=== PATIENT | female | born 1990 | race American Indian/Alaskan Native ===

== ENCOUNTER 2016-10-16 14:15 | Emergency (ER) | payer OTHER ==
--- NOTE | 2016-10-16 14:50 | Emergency Department Report ---
Chief Complaint: Abdominal Pain Stated Complaint: 11 WKS PREG/UPPER ABD PAIN Time Seen by Provider: 10/16/16 14:45 - HPI History of Present Illness: 26-year-old female that is 11 weeks comes in for upper abdominal pain. Patient reports that it started about 11:30 today. She tried to eat something to help the pain the pain is now constant. Alleviating factors none aggravating factors none. Just constant pain. Patient is not under OB care at this time. She is 3 para 0 - Exam Vital Signs: Vital Signs 10/16/16 14:30 Temperature 98.3 F Pulse Rate 92 H Respiratory 16 Rate Blood Pressure 125/80 O2 Sat by Pulse 100 Oximetry Physical Exam: Patient's alert and oriented 3 no acute distress. Cardiovascular S1-S2 regular rate and rhythm respiratory she is clear to auscultation bilateral abdomen soft epigastric tenderness no tenderness of the lower abdominal quadrants MSE screening note: Focused history and physical exam performed. Due to findings the following was ordered: ED Disposition for MSE Condition: Stable Instructions: Abdominal Pain (ED)
[2016-10-16 15:00] LABS: Hematocrit 33.6 % (30.3-42.9); Hemoglobin 11.1 gm/dl (10.1-14.3); Mean Corpuscular HGB Conc 33 % (30-34); Mean Corpuscular Hemoglobin 29 pg (28-32); Mean Corpuscular Volume 89 fl (79-97); Platelet Count 232 K/mm3 (140-440); Red Blood Count 3.77 M/mm3 (3.65-5.03); Red Cell Distribution Width 16.3 % (13.2-15.2)
[2016-10-16 15:22] LABS: Amylase 44 units/L (27-131); Anion Gap 16 mmol/L; Blood Urea Nitrogen 8 mg/dL (7-17); Calcium 8.7 mg/dL (8.4-10.2); Carbon Dioxide 25 mmol/L (22-30); Chloride 103.1 mmol/L (98-107); Glucose 86 mg/dL (65-100); Lipase 17 units/L (13-60); Potassium 3.7 mmol/L (3.6-5.0); Sodium 140 mmol/L (137-145)
[2016-10-16 15:39] LABS: Alanine Aminotransferase 6 units/L (7-56); Albumin 3.6 g/dL (3.9-5); Albumin/Globulin Ratio 1.1 %; Alkaline Phosphatase 58 units/L (35-129); Bilirubin,Total < 0.2 mg/dL (0.1-1.2); Total Protein 6.8 g/dL (6.3-8.2)
[2016-10-16 15:42] LABS: Bilirubin,Direct < 0.2 mg/dL (0-0.2)
--- NOTE | 2016-10-16 17:04 | Ultrasound Report ---
FINAL REPORT EXAM: US ABDOMEN LIMITED HISTORY: epigastric pain TECHNIQUE: Ultrasound abdomen PRIORS: None. FINDINGS: Within the right lobe of the liver there is 1.9 x 1.6 x 1.8 centimeter well-defined hyperechoic mass. Gallbladder is contracted. Gallbladder wall thickness 3.1 centimeters. No pericholecystic fluid seen. No evidence for cholelithiasis. Common bile duct is 3.7 millimeters Right kidney is 10.8 x 4.6 x 5.8 centimeters. No evidence for hydronephrosis IMPRESSION: Hyperechoic focus within the right lobe of the liver most consistent with hemangioma Contracted gallbladder. No evidence for cholelithiasis or acute cholecystitis
--- NOTE | 2016-10-16 17:09 | Ultrasound Report ---
FINAL REPORT EXAM: US OB < = 14 WEEKS FETUS HISTORY: abd pain TECHNIQUE: Ultrasound obstetrical transabdominal PRIORS: None. FINDINGS: There is gestational sac within the uterus. There is pole identified measuring 5.1 centimeters in crown-rump length. Biparietal diameter 1.7 centimeters. Femur length is 0.7 centimeters this corresponds to estimated gestational age 12 weeks 1 days with estimated date of delivery April 29, 2017. cardiac activity is present with heart rate of 153 beats per minute there is a mixed echogenicity focus within anterior body of the uterus 3.3 x 3.4 x 3.8 centimeters likely reflecting a intramural or submucosal fibroid. Right ovary is 2.8 x 1.8 x 1.5 centimeters Left ovary is 2.9 x 1.2 x 2.5 centimeters. Ovaries are normal in echogenicity. IMPRESSION: Single live intrauterine gestation estimated at 12 weeks 1 day 3.8 centimeter uterine fibroid noted
[2016-10-16 21:32] LABS: Bacteria,Urine 1+ /HPF (Negative); Bilirubin,Urine NEG (Negative); Blood,Urine NEG (Negative); Ketones,Urine NEG (Negative); Leukocyte Esterase,Urine MOD (Negative); Mucus,Urine 2+ /HPF; Nitrite,Urine NEG (Negative); Protein,Urine <15 mg/dL mg/dL (Negative); Urobilinogen,Urine < 2.0 mg/dL (<2.0)
--- NOTE | 2016-10-16 22:59 | Emergency Department Report ---
ED Abdominal Pain HPI - General Chief Complaint: Abdominal Pain Stated Complaint: 11 WKS PREG/UPPER ABD PAIN Time Seen by Provider: 10/16/16 14:45 Source: patient Mode of arrival: Ambulatory Limitations: No Limitations - History of Present Illness Initial Comments: 26-year-old female presents to the emergency department complaining of abdominal pain. Patient reports the onset of upper abdominal pain at approximately 11:30 AM. Pain was described as pressure. Initially the pain was intermittent, but became constant approximately one hour after onset. Patient states the pain has now migrated to her lower abdomen. She denies associated nausea or vomiting. Patient states she is approximately 11 weeks . She denies vaginal bleeding or vaginal discharge. There are no other complaints. MD Complaint: abdominal pain -: Sudden, This morning Time: 11:30 Location: epigastric Radiation: none Migration to: suprapubic Severity: moderate Severity scale (0 -10): 5 Quality: other (pressure) Consistency: constant Improves With: nothing Worsens With: nothing Associated Symptoms: denies other symptoms - Related Data Previous Rx's Medication Instructions Recorded Last Taken Type Multivitamin-Min/Iron/FA/Vit K 1 each PO DAILY #30 capsule 05/03/16 10/16/16 Rx [Multi For Her Softgel] Nitrofurantoin Magoffin/M-Cryst 100 mg PO Q12HR #14 capsule 10/16/16 Unknown Rx [Macrobid CAP] Allergies Allergy/AdvReac Type Severity Reaction Status Date / Time No Known Allergies Allergy Verified 09/06/16 09:30 ED Review of Systems ROS: Stated complaint: 11 WKS PREG/UPPER ABD PAIN Other details as noted in HPI Comment: All other systems reviewed and negative Gastrointestinal: abdominal pain ED Past Medical Hx - Past Medical History Previous Medical History?: No - Surgical History Past Surgical History?: Yes Additional Surgical History: wisdom teeth extractions, abortions x 2 - Family History Family history: no significant - Social History Smoking Status: Never Smoker Substance Use Type: None - Medications Home Medications: Home Medications Medication Instructions Recorded Confirmed Last Taken Type Multivitamin-Min/Iron/FA/Vit K 1 each PO DAILY #30 capsule 05/03/16 10/16/16 Rx [Multi For Her Softgel] Nitrofurantoin Magoffin/M-Cryst 100 mg PO Q12HR #14 capsule 10/16/16 Unknown Rx [Macrobid CAP] ED Physical Exam - General Limitations: No Limitations General appearance: alert, in no apparent distress - Head Head exam: Present: atraumatic, normocephalic - Eye Eye exam: Present: normal appearance, PERRL, EOMI - ENT ENT exam: Present: normal exam, normal orophraynx, mucous membranes moist - Neck Neck exam: Present: normal inspection, full ROM. Absent: tenderness - Respiratory Respiratory exam: Present: normal lung sounds bilaterally. Absent: respiratory distress - Cardiovascular Cardiovascular Exam: Present: regular rate, normal rhythm, normal heart sounds - GI/Abdominal GI/Abdominal exam: Present: soft, tenderness (mild suprapubic tenderness to palpation), normal bowel sounds. Absent: distended, guarding, rebound - Extremities Exam Extremities exam: Present: normal inspection, full ROM. Absent: tenderness - Back Exam Back exam: Present: normal inspection, full ROM. Absent: tenderness - Neurological Exam Neurological exam: Present: alert, oriented X3. Absent: motor sensory deficit - Skin Skin exam: Present: warm, dry, intact ED Course Vital Signs 10/16/16 10/16/16 10/16/16 14:30 20:47 20:52 Temperature 98.3 F 98.2 F Pulse Rate 92 H 80 Respiratory 16 18 20 Rate Blood Pressure 125/80 Blood Pressure 109/62 [Right] O2 Sat by Pulse 100 100 98 Oximetry 10/16/16 22:34 Temperature 98.4 F Pulse Rate 81 Respiratory 20 Rate Blood Pressure Blood Pressure 97/64 [Right] O2 Sat by Pulse 100 Oximetry ED Medical Decision Making - Lab Data Result diagrams: 10/16/16 14:51 10/16/16 14:51 - Radiology Data Radiology results: report reviewed Ultrasound of the abdomen reveals no acute intra-abdominal abnormality. ultrasound reveals a single live intrauterine with estimated gestational age of 12 weeks, 1 day. - Medical Decision Making Lab and imaging results reviewed and discussed with the patient. Patient will be discharged home at this time to follow up with her MEDICARE COORDINATOR. - Differential Diagnosis GERD, UTI, abdominal pain in Critical care attestation.: If time is entered above; I have spent that time in minutes in the direct care of this critically ill patient, excluding procedure time. ED Disposition Clinical Impression: Urinary tract infection affecting Disposition: DISCHARGED TO HOME OR SELFCARE Is pt being admited?: No Condition: Stable Instructions: Urinary Tract Infection in Women (ED) Prescriptions: Nitrofurantoin Magoffin/M-Cryst [Macrobid CAP] 100 mg PO Q12HR #14 capsule Referrals: PRIMARY CARE, [Primary Care Provider] - 3-5 Days Time of Disposition: 23:04
[2016-10-16 23:45] VITALS: BP 106/61
== END 2016-10-16 23:45 | disposition home or self-care (01) ==
LOC: ED 14:15
DX: O23.41 Unspecified infection of urinary tract in pregnancy, first trimester (principal); N39.0 Urinary tract infection, site not specified; Z3A.11 11 weeks gestation of pregnancy
CPT/HCPCS: 36415; 76705; 76801; 80048; 80074; 81001; 82150; 83690; 84703; 85027

== ENCOUNTER 2019-02-24 23:18 | Emergency (ER) | payer MEDICAID ==
[2019-02-24 23:24] VITALS: BP 166/104
[2019-02-25] MEDS ORDERED: TYLENOL PO ONE (00:37)
[2019-02-25] MEDS ORDERED: TYLENOL ONE (00:38)
[2019-02-25] MEDS ORDERED: IBUPROFEN PO STA (02:10)
--- NOTE | 2019-02-25 02:15 | Emergency Department Report ---
ED ENT HPI - General Chief complaint: Earache Stated complaint: LT EAR PAIN Time Seen by Provider: 02/25/19 02:09 Source: patient Mode of arrival: Ambulatory Limitations: No Limitations - History of Present Illness MD complaint: ear pain -: Gradual, days(s) Location: L ear Severity: mild Quality: aching Consistency: constant Improves with: none Worsens with: none Context- Dental: history of dental caries Associated Symptoms: hearing loss. denies: gum swelling, toothache, pain with swallowing, sore throat, tinnitus, rhinorrhea - Related Data Home Medications Medication Instructions Recorded Confirmed Last Taken Ferrous Sulfate [Feosol] 325 mg PO QDAY 05/05/17 05/05/17 04/29/17 12:30 Previous Rx's Medication Instructions Recorded Last Taken Type Multivit-Min/Iron/Folic Acid/K 1 each PO DAILY #30 capsule 05/03/16 04/08/17 08:00 Rx [Multi For Her Softgel] Nitrofurantoin Lares/M-Cryst 100 mg PO Q12HR #14 capsule 10/16/16 Unknown Rx [Macrobid CAP] Acetaminophen/Codeine [Tylenol 1 tab PO Q6H PRN #14 tab 05/08/17 Unknown Rx /Codeine # 3 tab] Amoxicillin [Amoxicillin TAB] 875 mg PO BID #20 tablet 02/25/19 Unknown Rx predniSONE [Deltasone] 50 mg PO QDAY #5 tab 02/25/19 Unknown Rx Allergies Allergy/AdvReac Type Severity Reaction Status Date / Time No Known Allergies Allergy Verified 09/06/16 09:30 ED Dental HPI - General Chief complaint: Earache Stated complaint: LT EAR PAIN Time Seen by Provider: 02/25/19 02:09 Source: patient Mode of arrival: Ambulatory Limitations: No Limitations - Related Data Home Medications Medication Instructions Recorded Confirmed Last Taken Ferrous Sulfate [Feosol] 325 mg PO QDAY 05/05/17 05/05/17 04/29/17 12:30 Previous Rx's Medication Instructions Recorded Last Taken Type Multivit-Min/Iron/Folic Acid/K 1 each PO DAILY #30 capsule 05/03/16 04/08/17 08:00 Rx [Multi For Her Softgel] Nitrofurantoin Lares/M-Cryst 100 mg PO Q12HR #14 capsule 10/16/16 Unknown Rx [Macrobid CAP] Acetaminophen/Codeine [Tylenol 1 tab PO Q6H PRN #14 tab 05/08/17 Unknown Rx /Codeine # 3 tab] Amoxicillin [Amoxicillin TAB] 875 mg PO BID #20 tablet 02/25/19 Unknown Rx predniSONE [Deltasone] 50 mg PO QDAY #5 tab 02/25/19 Unknown Rx Allergies Allergy/AdvReac Type Severity Reaction Status Date / Time No Known Allergies Allergy Verified 09/06/16 09:30 ED Review of Systems ROS: Stated complaint: LT EAR PAIN Other details as noted in HPI Constitutional: denies: chills, fever Eyes: denies: eye pain, eye discharge, vision change ENT: ear pain. denies: throat pain Respiratory: denies: cough, shortness of breath, wheezing Cardiovascular: denies: chest pain, palpitations Endocrine: no symptoms reported Gastrointestinal: denies: abdominal pain, nausea, diarrhea Genitourinary: denies: urgency, dysuria, discharge Musculoskeletal: denies: back pain, joint swelling, arthralgia Skin: denies: rash, lesions Neurological: denies: headache, weakness, paresthesias Psychiatric: denies: anxiety, depression Hematological/Lymphatic: denies: easy bleeding, easy bruising ED Past Medical Hx - Past Medical History Previous Medical History?: No Hx Hypertension: No Hx Congestive Heart Failure: No Hx Diabetes: No Hx Deep Vein Thrombosis: No Hx Renal Disease: No Hx Sickle Cell Disease: No Hx Seizures: No Hx Asthma: No Hx COPD: No Hx HIV: No - Surgical History Past Surgical History?: Yes Additional Surgical History: wisdom teeth extractions, abortions x 2 - Social History Smoking Status: Never Smoker - Medications Home Medications: Home Medications Medication Instructions Recorded Confirmed Last Taken Type Multivit-Min/Iron/Folic Acid/K 1 each PO DAILY #30 capsule 05/03/16 05/05/17 04/08/17 08:00 Rx [Multi For Her Softgel] Nitrofurantoin Lares/M-Cryst 100 mg PO Q12HR #14 capsule 10/16/16 05/05/17 Unknown Rx [Macrobid CAP] Ferrous Sulfate [Feosol] 325 mg PO QDAY 05/05/17 05/05/17 04/29/17 12:30 History Acetaminophen/Codeine [Tylenol 1 tab PO Q6H PRN #14 tab 05/08/17 Unknown Rx /Codeine # 3 tab] Amoxicillin [Amoxicillin TAB] 875 mg PO BID #20 tablet 02/25/19 Unknown Rx predniSONE [Deltasone] 50 mg PO QDAY #5 tab 02/25/19 Unknown Rx ED Physical Exam - General Limitations: No Limitations General appearance: alert, in no apparent distress - Head Head exam: Present: atraumatic, normocephalic - Eye Eye exam: Present: normal appearance - ENT ENT exam: Present: mucous membranes moist, other (swelling mostly to the left tympanic membranes. Light reflex is noted. Nose: Fluid noted. Abdomen tympanic membrane is well with an injection to the tympanic membrane. There) - Neck Neck exam: Present: normal inspection, full ROM - Respiratory Respiratory exam: Present: normal lung sounds bilaterally. Absent: respiratory distress, wheezes, rales, rhonchi - Cardiovascular Cardiovascular Exam: Present: regular rate, normal rhythm. Absent: systolic murmur, diastolic murmur, rubs, gallop - GI/Abdominal GI/Abdominal exam: Present: soft, normal bowel sounds - Extremities Exam Extremities exam: Present: normal inspection - Back Exam Back exam: Present: normal inspection - Neurological Exam Neurological exam: Present: alert, oriented X3 - Psychiatric Psychiatric exam: Present: normal affect, normal mood - Skin Skin exam: Present: warm, dry, intact, normal color. Absent: rash ED Course Vital Signs 02/24/19 02/25/19 02/25/19 23:23 00:30 00:38 Temperature 99.0 F 99.0 F Pulse Rate 97 H 81 Respiratory 18 18 20 Rate Blood Pressure 166/104 166/104 O2 Sat by Pulse 98 98 Oximetry Critical care attestation.: If time is entered above; I have spent that time in minutes in the direct care of this critically ill patient, excluding procedure time. ED Disposition Clinical Impression: Otitis media Disposition: DC-01 TO HOME OR SELFCARE Is pt being admited?: No Does the pt Need Aspirin: No Condition: Stable Instructions: Otitis Media (ED) Prescriptions: Amoxicillin [Amoxicillin TAB] 875 mg PO BID #20 tablet predniSONE [Deltasone] 50 mg PO QDAY #5 tab Referrals: NAZARIO HOPPER MD [Primary Care Provider] - 3-5 Days
== END 2019-02-25 03:47 | disposition home or self-care (01) ==
LOC: ED 23:18
DX: H66.92 Otitis media, unspecified, left ear (principal)
CPT/HCPCS: 99282

== ENCOUNTER 2019-09-20 09:18 | Outpatient (CLI) | payer MEDICAID ==
[2019-09-20] MEDS ORDERED: LACTATED RINGERS 500 ML IV ONE (10:01)
[2019-09-20 10:33] LABS: Bilirubin,Urine NEG (Negative); Blood,Urine NEG (Negative); Color,Urine Yellow (Yellow); Mucus,Urine FEW /HPF; Protein,Urine <15 mg/dL mg/dL (Negative); Urobilinogen,Urine < 2.0 mg/dL (<2.0)
[2019-09-20 10:50] LABS: Basophils % (Auto) 0.1 % (0.0-1.8); Eosinophils # (Auto) 0.2 K/mm3 (0.0-0.4); Eosinophils % (Auto) 1.6 % (0.0-4.3); Hematocrit 31.6 % (30.3-42.9); Hemoglobin 10.4 gm/dl (10.1-14.3); Lymphocytes # (Auto) 1.7 K/mm3 (1.2-5.4); Lymphocytes % (Auto) 14.6 % (13.4-35.0); Mean Corpuscular HGB Conc 33 % (30-34); Mean Corpuscular Volume 93 fl (79-97); Monocytes # (Auto) 0.8 K/mm3 (0.0-0.8); Monocytes % (Auto) 6.7 % (0.0-7.3); Platelet Count 235 K/mm3 (140-440); Red Blood Count 3.42 M/mm3 (3.65-5.03); Red Cell Distribution Width 14.6 % (13.2-15.2)
[2019-09-20 11:04] LABS: Amphetamine Screen,Urine PRESUMPTIVE NEGATIVE; Benzodiazepines Screen,Urine PRESUMPTIVE NEGATIVE; Cannabinoid Screen,Urine PRESUMPTIVE NEGATIVE; Cocaine Screen,Urine PRESUMPTIVE NEGATIVE; Methadone Screen,Urine PRESUMPTIVE NEGATIVE; Opiate Screen,Urine PRESUMPTIVE NEGATIVE
[2019-09-20 11:13] LABS: Alanine Aminotransferase 6 units/L (7-56); Albumin 3.3 g/dL (3.9-5); BUN/Creatinine Ratio 12; Blood Urea Nitrogen 6 mg/dL (7-17); Calcium 8.6 mg/dL (8.4-10.2); Hemolysis Index 11
[2019-09-20 11:54] VITALS: BP 123/58
--- NOTE | 2019-09-20 12:45 | Ultrasound Report ---
Limited OB Ultrasound BPP HISTORY: no pnc. TECHNIQUE: Grayscale and color Doppler imaging performed. COMPARISON: No recent ultrasound is available for comparison. FINDINGS: There is a single viable intrauterine gestation which is variable in presentation. Heart ra te is 143 bpm. There is a single vertical fluid pocket greater than 2 cm and FEDERICO is subjectively norm al. Overall EGA is 21 weeks and 3 days with estimated delivery date of 01/28/2020. Estimated edson ght is 429 g. Placenta is seen posteriorly with no evidence of placenta previa. On BPP, the fetus received a score of 2 out of 2 for breathing movement, movement, posture/tone, and FEDERICO. Total score was 8 out of 8. IMPRESSION: 1. Single viable intrauterine gestation as outlined above with no evidence of abruption. 2. Normal BPP. Signer Name: Erick Hall MD Signed: 09/20/2019 12:40 PM Workstation Name: [id number]
== END 2019-09-20 13:00 | disposition home or self-care (01) ==
LOC: TRG 09:18
PROVIDERS: ATTEND Obstetrics & Gynecology
DX: O47.02 False labor before 37 completed weeks of gestation, second trimester (principal); Z3A.21 21 weeks gestation of pregnancy
CPT/HCPCS: 36415; 59025; 76815; 76816; 76819; 80053; 80307; 81001; 85025

== ENCOUNTER → 2019-09-20 | Emergency (ER) | payer MEDICAID | LOC: ED 09:05 | DX: R10.9 Unspecified abdominal pain (principal); Z53.21 Procedure and treatment not carried out due to patient leaving prior to being seen by health care provider ==

== ENCOUNTER 2019-09-25 13:22 | Emergency (ER) | payer MEDICAID ==
[2019-09-25 14:27] VITALS: BP 133/79
--- NOTE | 2019-09-25 16:00 | Emergency Department Report ---
Chief Complaint: Upper Respiratory Infection Stated Complaint: THROAT PAIN/COUGH Time Seen by Provider: 09/25/19 14:25 - HPI History of Present Illness: Mary Jo is a 29 yo female who is currently 21 weeks who presents with cough nasal congestion. She has home amoxicillin that she plans to take for bronchitis. MSE performed. No indication of life or limb threatening medical condition which requires treatment or evaluation. - Exam Vital Signs: Vital Signs 09/25/19 14:25 Temperature 98.7 F Pulse Rate 122 H Respiratory 22 Rate Blood Pressure 133/79 [Right] O2 Sat by Pulse 97 Oximetry MSE screening note: Focused history and physical exam performed. Due to findings the following was ordered: ED Disposition for MSE Clinical Impression: URI (upper respiratory infection), Patient currently Disposition: MED SCREENING EXAM-LEFT Is pt being admited?: No Does the pt Need Aspirin: No Condition: Stable Additional Instructions: Please return to the ER if your symptoms do not improve or become worse.
== END 2019-09-25 16:02 | disposition left against medical advice (07) ==
LOC: ED 13:22
DX: O99.512 Diseases of the respiratory system complicating pregnancy, second trimester (principal); J06.9 Acute upper respiratory infection, unspecified; Z3A.21 21 weeks gestation of pregnancy
CPT/HCPCS: 99281

== ENCOUNTER 2019-10-19 16:47 | Outpatient (CLI) | payer OTHER ==
[2019-10-19] MEDS ORDERED: LACTATED RINGERS 500 ML IV ONE (17:45)
[2019-10-19 18:03] VITALS: BP 122/73
== END 2019-10-19 19:35 | disposition home or self-care (01) ==
LOC: TRG 16:47
PROVIDERS: ATTEND Obstetrics & Gynecology
DX: O47.03 False labor before 37 completed weeks of gestation, third trimester (principal); Z3A.24 24 weeks gestation of pregnancy
CPT/HCPCS: 59025

== ENCOUNTER 2019-12-04 18:58 | Outpatient (CLI) | payer MEDICAID ==
[2019-12-04 21:30] LABS: Bacteria,Urine 2+ /HPF (Negative); Bilirubin,Urine NEG (Negative); Blood,Urine MOD (Negative); Color,Urine Yellow (Yellow); Mucus,Urine FEW /HPF; Urobilinogen,Urine < 2.0 mg/dL (<2.0)
[2019-12-04 21:31] LABS: WBC,Urine > 128.0 /HPF (0.0-6.0)
[2019-12-05] MEDS ORDERED: FLUCONAZOLE 100 MG TAB PO ONE (21:12)
== END 2019-12-04 23:25 | disposition home or self-care (01) ==
LOC: TRG 18:58
PROVIDERS: ATTEND Obstetrics & Gynecology
DX: O26.893 Other specified pregnancy related conditions, third trimester (principal); R10.2 Pelvic and perineal pain; Z3A.33 33 weeks gestation of pregnancy
CPT/HCPCS: 81001; 87086

== ENCOUNTER 2020-01-23 08:08 | Inpatient (IN) | payer MEDICAID ==
--- NOTE | 2020-01-23 10:52 | History and Physical Report ---
History of Present Illness Date of examination: 01/23/20 Date of admission: 01/23/2020 Chief complaint: Intense Labor Pains History of present illness: Late entry to care at 28 weeks, 3rd trimester complicated by a UTI (treated with Amoxicillin), +Trichomonas (treated with Negative RITA), Anemia (treated with PO FeSO4), and Vitamin D Insufficiency (treated with Vit. D). Past History Past Medical History: no pertinent history Past Surgical History: PAPER FOLDER/uterine surgery (EAB x 2), other (oral Sx) PAPER FOLDER History: trichomonas Family/Genetic History: cancer (Mother: Ovarian CA; Father: Throat Ca) Social history: no significant social history, single - Obstetrical History Expected Date of Delivery: 01/28/20 Actual Gestation: 39 Week(s) 2 Day(s) : 5 Para: 1 Hx # Term Pregnancies: 1 Spontaneous Abortions: 1 Induced : 2 Number of Living Children: 1 #1 Infant Gender: Female year: 18 Birthweight: 2.92 kg Method of Delivery: Vaginal Gestational age at delivery: 41 Complications: none Medications and Allergies Allergies Allergy/AdvReac Type Severity Reaction Status Date / Time No Known Allergies Allergy Verified 09/25/19 14:27 Home Medications Medication Instructions Recorded Confirmed Last Taken Type No Known Home Medications [No 09/20/19 09/20/19 Unknown History Reported Home Medications] Review of Systems All systems: negative - Vital Signs Vital signs: Vital Signs Pulse BP Pulse Ox 71 120/70 93 01/23/20 08:33 01/23/20 08:33 01/23/20 08:33 Temp Pulse Resp BP Pulse Ox 99.2 F 53 L 20 123/75 90 01/23/20 08:40 01/23/20 10:36 01/23/20 08:40 01/23/20 08:42 01/23/20 10:36 - Physical Exam Breasts: Positive: normal Cardiovascular: Regular rate Lungs: Positive: Clear to auscultation, Normal air movement Abdomen: Positive: normal appearance, soft, normal bowel sounds Genitourinary (Female): Positive: normal external genitalia, normal perenium Vagina: Positive: normal moisture Uterus: Positive: enlarged Anus/Rectum: Positive: normal perianal skin Extremities: Positive: normal - Obstetrical FHR: category 1 Uterine Contraction Monitor Mode: External Cervical Dilatation: 3 Cervical Effacement Percentage: 60 station: -2 Uterine Contraction Frequency (min): 2 Uterine Contraction Pattern: Regular Uterine Tone Measurement Phase: Resting Uterine Contraction Intensity: Strong/Firm Results All other labs normal. Assessment and Plan A: IUP @ 39 2/7 Weeks Category I Tracing Early Labor GBS Positive P: Admit to L&D per Routine Orders GBS Prophylaxis
[2020-01-23] MEDS ORDERED: OXYTOCIN 20 UNIT/1000ML DRIP 20 UNITS/1,000 ML BAG IV SCH ×2 (11:00→23:00)
[2020-01-23] MEDS ORDERED: AMPICILLIN/NS 2 GM/100 ML 2 GM/100 ML BAG IV SCH (11:00)
[2020-01-23] MEDS ORDERED: OXYTOCIN DRIP 30 UNITS/500 ML BAG IV SCH (11:00)
[2020-01-23] MEDS ORDERED: MINERAL OIL 30 ML ORAL LIQD PO PRN (11:00)
[2020-01-23] MEDS ORDERED: NALOXONE 0.4 MG/1 ML INJ IV PRN (11:00)
[2020-01-23] MEDS ORDERED: TERBUTALINE 1 MG/1 ML INJ SUB-Q PRN (11:00)
[2020-01-23] MEDS ORDERED: LIDOCAINE (2%) 20 MG/1 ML VIAL 20 ML MDV INFILTRATI NR (11:00)
[2020-01-23] MEDS ORDERED: ONDANSETRON 4 MG/2 ML INJ IV PRN (11:00)
[2020-01-23] MEDS ORDERED: BUTORPHANOL 2 MG/1 ML INJ IV PRN (11:00)
[2020-01-23] MEDS ORDERED: ePHEDrine SULFATE 50 MG/1 ML INJ IV PRN (11:00)
[2020-01-23] MEDS ORDERED: TERBUTALINE 1 MG/1 ML INJ IVP PRN (11:00)
[2020-01-23 11:16] LABS: Hematocrit 39.8 % (30.3-42.9); Hemoglobin 13.1 gm/dl (10.1-14.3); Mean Corpuscular HGB Conc 33 % (30-34); Mean Corpuscular Volume 93 fl (79-97); Platelet Count 242 K/mm3 (140-440); Red Blood Count 4.28 M/mm3 (3.65-5.03); Red Cell Distribution Width 17.2 % (13.2-15.2)
[2020-01-23] MEDS: LACTATED RINGERS 1,000 ML IV SCH ×5 (11:30→19:54)
[2020-01-23] MEDS ORDERED: NALOXONE 2 MG/2 ML INJ IV PRN (13:49)
[2020-01-23] MEDS: fentaNYL-BUPIV 2 MCG/ML-0.125% 200 MCG/100 ML BAG EPIDURAL SCH ×3 (14:25→21:14)
[2020-01-23] MEDS ORDERED: DEXMEDETOMIDINE 200 MCG/2 ML VIAL IV ONE ×2 (14:56→23:58)
[2020-01-23] MEDS ORDERED: BUPIVACAINE/PF (0.25%) 2.5 MG/ML 10 ML VIAL INFILTRATI ONE (14:56)
[2020-01-23] MEDS: ePHEDrine SULFATE 50 MG/1 ML INJ IV PRN ×2 (15:40→16:49)
[2020-01-23] MEDS: AMPICILLIN/NS 1 GM/50 ML 1 GM/50 ML BAG IV SCH ×2 (18:06→19:54)
[2020-01-23] MEDS ORDERED: METOCLOPRAMIDE 10 MG/2 ML INJ ONE (22:49)
[2020-01-23] MEDS ORDERED: BICITRA ORAL LIQD 30ML ONE (22:49)
[2020-01-23] MEDS ORDERED: FAMOTIDINE 20 MG/2 ML INJ IV ONE ×2 (22:49→22:58)
[2020-01-23] MEDS ORDERED: ceFAZolin/Water 2 GM/20 ML 2 GM/20 ML SYRINGE IV ONE (22:50)
[2020-01-23] MEDS ORDERED: METOCLOPRAMIDE 10 MG/2 ML INJ IV ONE (22:58)
[2020-01-23] MEDS ORDERED: BICITRA ORAL LIQD 30ML PO ONE (22:58)
--- NOTE | 2020-01-23 22:58 | Event Note ---
Date: 01/23/20 PT check again now and is still 5 cm. PT with minimal cervical change in several hours. Just low dose pitocin earlier today resulted in episodes of prolonged decels, therefore pit turned off. Recently, pt had a 2-3 min decel even without pitocin and without regular contractions. With her poor cervical progression and repeated episodes of prolonged decels, case d/w pt and options d/w. Risks/benefits of expectant management vs LTCS d/w pt and she opts to proceed with LTCS. Patient fully consented for the surgery. Risks, benefits. and alternatives were all discussed with the patient including risk of bleeding, infection, and potential for injury. Patient understands and accepts these risks. Patient agrees to proceed with surgery.
[2020-01-23] MEDS ORDERED: LIDOCAINE MPF (2%) 20 MG/1 ML VIAL 5 ML ONE ×2 (23:00→23:30)
[2020-01-23] MEDS ORDERED: ceFAZolin/Water 2 GM/20 ML 2 GM/20 ML SYRINGE IV NR (23:00)
[2020-01-23] MEDS ORDERED: LACTATED RINGERS 1,000 ML IV SCH (23:00)
--- NOTE | 2020-01-23 23:13 | Procedure Note ---
OB Delivery Note - Delivery Date of Delivery: 01/23/20 Surgeon: BENNY MERA Estimated blood loss: 1000cc - Section Preop diagnosis: arrest of dilation, nonreassuring FHR tracing Postop diagnosis: same section procedure: section, primary low transverse Disposition: PACU Complications: none Narrative: Indication: 29-year-old -0-3-1 is for primary low transverse for poor cervical dilation and nonreassuring heart tracing. Findings: Normal uterus, tubes and ovaries. Meconium fluid. Tight nuchal cord x 2. Procedure: Patient taken to the operating room and prepped and draped in the usual fashion. Pfannenstiel skin incision was made and carried down to the underlying fascia. Fascia was incised and the incision was extended bilaterally. Rectus fascia dissected off the rectus muscle both superiorly and inferiorly. Peritoneum identified tented up and entered. Peritoneal incision extended superiorly and inferiorly with good visualization of the bladder. Bladder blade was placed. Uterine incision was made and the incision was extended bilaterally. The baby was delivered from in the typical vertex fashion. Baby bulb suctioned at the incision site and again after delivery. Cord was clamped and cut and handed off to waiting team. The placenta was delivered spontaneously. The uterus was exteriorized and cleared of all clots and debris. Uterine incision closed with 0 Vicryl in a running locked fashion followed by a second imbricating layer of 0 Vicryl. Bleeding from a uterine vessel on the left took a few additional stitches and then good hemostasis was noted. Her urine was clear. Uterus tubes and ovaries return to the abdominal cavity. Gutters were cleared of all clots and debris and the pelvis was well irrigated. Good hemostasis noted. Interceed placed over the uterine incision and over the lower uterine segment in the midline. Attention was turned to the rectus fascia which was reapproximated with 0 Vicryl in a running fashion. Subcutaneous tissues was irrigated and reapproximated with 2-0 Vicryl in a running fashion. Skin was closed with 4-0 Vicryl in a subcuticular fashion followed by Dermabond. The procedure was concluded at this point and the patient tolerated the procedure well. All instrument and lap counts were correct. - Infant A at 1 minute: 8 at 5 minutes: 8 Gender: Male
[2020-01-23] MEDS ORDERED: SODIUM CHLORIDE 0.9% 1000 ML IV SOLN IV ONE (23:17)
[2020-01-23] MEDS ORDERED: ceFAZolin/STERILE WATER 2 GM/20 ML SYRINGE IV ONE (23:17)
[2020-01-23] MEDS ORDERED: KETOROLAC 30 MG/1 ML INJ ONE (23:33)
[2020-01-23] MEDS ORDERED: ONDANSETRON 4 MG/2 ML INJ ONE (23:33)
[2020-01-24] MEDS ORDERED: LIDOCAINE MPF (2%) 20 MG/1 ML VIAL 5 ML ONE (00:13)
[2020-01-24] MEDS ORDERED: METHYLERGONOVINE MALEATE 0.2 MG/ML VIAL IM ONE ×2 (00:19→02:45)
[2020-01-24] MEDS ORDERED: OXYTOCIN 10 UNIT/1 ML INJ ONE (00:34)
[2020-01-24] MEDS ORDERED: WITCH HAZEL/ GLYCERIN PAD TP PRN (00:50)
[2020-01-24] MEDS ORDERED: NALOXONE 0.4 MG/1 ML INJ IV PRN (00:50)
[2020-01-24] MEDS ORDERED: LANOLIN/ZINC/DIMETHICONE (LANSINOH) 7 GM TP PRN (00:50)
[2020-01-24] MEDS ORDERED: SIMETHICONE 80 MG CHEW TAB PO PRN (00:52)
[2020-01-24] MEDS ORDERED: MAGNESIUM HYDROXIDE (MOM) ORAL LIQD UDC PO PRN (00:52)
[2020-01-24] MEDS ORDERED: SENNOSIDES 8.6 MG TAB PO PRN (00:52)
[2020-01-24] MEDS ORDERED: ONDANSETRON 4 MG/2 ML INJ IV PRN ×2 (00:52→01:20)
[2020-01-24] MEDS ORDERED: OXYTOCIN 20 UNIT/1000ML DRIP 20 UNITS/1,000 ML BAG IV SCH (01:00)
--- NOTE | 2020-01-24 01:19 | Anesthesia Consultation ---
Anesthesia Consult and Med Hx Date of service: 01/24/20 - Airway Anesthetic Teeth Evaluation: Poor ROM Head & Neck: Adequate Mental/Hyoid Distance: Adequate Mallampati Class: Class II Intubation Access Assessment: Probably Good - Pulmonary Exam CTA: Yes - Cardiac Exam Cardiac Exam: RRR - Pre-Operative Health Status ASA Pre-Surgery Classification: ASA2 Proposed Anesthetic Plan: Epidural - Pulmonary Hx Smoking: No Hx Asthma: No Hx Respiratory Symptoms: No SOB: No COPD: No Home Oxygen Therapy: No Hx Pneumonia: No Hx Sleep Apnea: No - Cardiovascular System Hx Hypertension: No Hx Coronary Artery Disease: No Hx Heart Attack/AMI: No Hx Angina: No Hx Percutaneous Transluminal Coronary Angioplasty (PTCA): No Hx Cardia Arrhythmia: No Hx Pacemaker: No Hx Internal Defibrillator: No Hx Valvular Heart Disease: No Hx Heart Murmur: No Hx Peripheral Vascular Disease: No - Central Nervous System Hx Neuromuscular Disorder: No Hx Seizures: No CVA: No Hx Back Pain: No Hx Psychiatric Problems: No - Gastrointestinal Hx Ulcer: No Hx Gastroesophageal Reflux Disease: No - Endocrine Hx Renal Disease: No Hx End Stage Renal Disease: No Hx Cirrhosis: No Hx Liver Disease: No Hx Insulin Dependent Diabetes: No Hx Non-Insulin Dependent Diabetes: No Hx Thyroid Disease: No Hx Hypothyroidism: No Hx Hyperthyroidism: No - Hematic Hx Anemia: No Hx Sickle Cell Disease: No - Other Systems Hx Alcohol Use: Yes (OCAASIONAL) Hx Substance Use: No Hx Cancer: No Hx Obesity: Yes
--- NOTE | 2020-01-24 01:19 | Anesthesia Day of Surgery ---
Anesthesia Day of Surgery - Day of Surgery Patient Examined: Yes Patient H&P Reviewed: Yes Patient is NPO: Yes Beta Blockers: No Cardiac Clearance: No Pulmonary Clearance: No Tacos's Test: N/A
[2020-01-24] MEDS ORDERED: HYDROmorphone 1 MG/1 ML INJ IV PRN (01:20)
--- NOTE | 2020-01-24 01:20 | Post Anesthesia Evaluation ---
- Post Anesthesia Evaluation Patient Participated: Yes Airway Patent: Yes Stable Respiratory Function: Yes Nausea/Vomiting: No Temp > 96.8F: Yes Pain Manageable: Yes Adequeate Hydration: Yes Anesthesia Complications: No Block Receding Appropriately: Yes Patient on Ventilator: No
[2020-01-24] MEDS: oxyCODONE /ACETAMINOPHEN 5-325MG TAB PO PRN ×4 (03:49→21:09)
[2020-01-24] MEDS: KETOROLAC 30 MG/1 ML INJ IV PRN ×3 (05:28→18:27)
[2020-01-24] MEDS: LACTATED RINGERS 1,000 ML IV SCH (05:32)
[2020-01-24] MEDS ORDERED: TETANUS,DIPH,PERTUSS(ACELL) VACCINE 0.5 ML SYRINGE IM ONE (06:00)
--- NOTE | 2020-01-24 10:55 | Progress Note ---
Assessment and Plan A: POD #1 P: Follow Routine PostOp Orders Encourage increased ambulation Subjective - Subjective Date of service: 01/24/20 Interval history: Late entry to care at 28 weeks, 3rd trimester complicated by a UTI (treated with Amoxicillin), +Trichomonas (treated with Negative RITA), Anemia (treated with PO FeSO4), and Vitamin D Insufficiency (treated with Vit. D). Patient reports: appetite normal, voiding normally, pain well controlled, flatus, ambulating normally [place]: doing well Objective - Vital Signs Latest vital signs: Vital Signs Temp Pulse Resp BP BP Pulse Ox 01/24/20 07:54 99.2 F 118 H 18 118/68 98 01/24/20 02:35 99.6 F 98 H 18 110/63 98 01/24/20 02:25 99.7 F H 99/46 01/24/20 02:10 106 H 20 94/42 100 01/24/20 01:55 100 H 20 90/45 100 01/24/20 01:40 94 H 19 87/44 99 01/24/20 01:25 113 H 19 85/40 97 01/24/20 01:20 100 H 17 86/43 100 01/24/20 01:15 102 H 16 85/33 100 01/24/20 01:10 98.8 F 108 H 20 79/38 100 01/23/20 23:10 87 99 01/23/20 23:05 109 H 98 01/23/20 23:01 90 122/64 01/23/20 23:00 96 H 99 01/23/20 22:55 124 H 99 01/23/20 22:50 93 H 99 01/23/20 22:46 90 134/71 01/23/20 22:45 90 99 01/23/20 22:40 99 H 99 01/23/20 22:35 101 H 99 01/23/20 22:31 80 126/67 01/23/20 22:30 84 100 01/23/20 22:25 115 H 99 01/23/20 22:22 96 H 116/70 01/23/20 22:20 89 99 01/23/20 22:15 127 H 99 01/23/20 22:08 110 H 99 01/23/20 22:03 116 H 99 01/23/20 22:01 137 H 118/56 04/22/20 21:58 112 H 96 20 21:53 86 98 0420 21:48 89 98 0420 21:43 86 98 20 21:38 89 98 0420 21:33 100 H 98 20 21:32 102 H 143/86 20 21:28 103 H 98 20 21:23 101 H 98 01/23/20 21:18 103 H 97 01/23/20 21:17 93 H 141/76 01/23/20 21:13 126 H 95 01/23/20 21:08 87 98 01/23/20 21:03 81 98 01/23/20 21:01 111 H 115/59 01/23/20 20:58 105 H 98 01/23/20 20:53 87 98 01/23/20 20:48 123 H 143/72 95 01/23/20 20:43 83 98 01/23/20 20:38 87 98 01/23/20 20:33 97 H 97 01/23/20 20:32 96 H 130/73 20 20:28 90 98 20 20:23 83 98 20 20:18 100 01/23/20 20:17 96 H 130/72 20 20:16 94 01/23/20 20:13 84 98 01/23/20 20:08 88 97 01/23/20 20:03 110 H 97 01/23/20 20:01 103 H 113/57 01/23/20 19:58 104 H 97 01/23/20 19:53 96 H 98 01/23/20 19:48 110 H 98 20 19:47 81 137/73 20 19:43 101 H 98 20 19:38 99 H 100 20 19:33 112 H 98 20 19:31 116 H 113/55 01/23/20 19:28 107 H 99 20 19:23 126 H 98 01/23/20 19:18 100 H 91 20 19:16 109 H 148/63 01/23/20 19:13 166 H 99 01/23/20 19:10 98.1 F 16 01/23/20 19:08 87 100 01/23/20 19:03 90 100 01/23/20 19:01 100 H 132/61 01/23/20 18:58 83 100 01/23/20 18:53 125 H 100 01/23/20 18:48 90 100 01/23/20 18:46 103 H 146/61 01/23/20 18:43 92 H 100 01/23/20 18:38 84 100 01/23/20 18:33 75 100 01/23/20 18:32 71 140/73 01/23/20 18:28 107 H 99 01/23/20 18:23 100 H 98 01/23/20 18:18 86 99 01/23/20 18:17 87 138/66 01/23/20 18:13 110 H 98 01/23/20 18:08 102 H 98 01/23/20 18:03 109 H 98 01/23/20 18:01 88 146/77 01/23/20 17:58 103 H 98 01/23/20 17:53 114 H 98 01/23/20 17:48 87 99 01/23/20 17:46 80 119/58 01/23/20 17:43 92 H 99 01/23/20 17:38 101 H 99 01/23/20 17:33 90 99 01/23/20 17:31 103 H 102/54 01/23/20 17:28 92 H 98 01/23/20 17:23 87 98 01/23/20 17:18 80 99 01/23/20 17:16 91 H 106/54 01/23/20 17:13 103 H 98 01/23/20 17:08 96 H 98 01/23/20 17:03 98 H 98 01/23/20 17:01 90 106/53 01/23/20 16:58 76 99 01/23/20 16:53 83 99 01/23/20 16:48 110 H 98 01/23/20 16:46 104 H 80/37 01/23/20 16:43 116 H 98 01/23/20 16:38 74 98 01/23/20 16:33 76 98 01/23/20 16:32 69 107/54 01/23/20 16:28 67 96 01/23/20 16:23 139 H 99 01/23/20 16:18 109 H 98 01/23/20 16:16 96 H 86/44 01/23/20 16:13 98 H 97 01/23/20 16:08 90 98 01/23/20 16:03 82 98 01/23/20 16:01 114 H 95/45 01/23/20 15:58 117 H 98 01/23/20 15:53 93 H 98 01/23/20 15:48 84 100 01/23/20 15:46 96 H 114/60 42 L 01/23/20 15:43 106 H 93 01/23/20 15:38 104 H 93 01/23/20 15:37 94 H 131/63 01/23/20 15:33 71 92 01/23/20 15:32 107 H 95/50 01/23/20 15:30 134 H 92 01/23/20 15:28 124 H 91 01/23/20 15:24 110 H 94 01/23/20 15:23 110 H 97 01/23/20 15:18 110 H 97 01/23/20 15:17 118 H 102/53 01/23/20 15:13 118 H 100 01/23/20 15:08 102 H 100 01/23/20 15:03 105 H 100 01/23/20 15:00 100 H 113/63 01/23/20 14:58 104 H 100 01/23/20 14:53 112 H 100 01/23/20 14:48 103 H 100 01/23/20 14:47 99 H 115/62 01/23/20 14:43 92 H 98 01/23/20 14:38 95 H 97 01/23/20 14:33 104 H 100 01/23/20 14:32 105 H 124/70 01/23/20 14:28 93 H 100 01/23/20 14:23 102 H 100 01/23/20 14:18 94 H 100 01/23/20 14:16 90 116/58 01/23/20 14:13 99 H 99 01/23/20 14:08 99 H 99 01/23/20 14:03 102 H 99 01/23/20 14:01 96 H 121/63 01/23/20 13:58 106 H 97 01/23/20 13:53 95 H 96 01/23/20 13:48 100 H 96 01/23/20 13:45 107 H 135/59 01/23/20 13:43 104 H 134/63 96 01/23/20 13:41 112 H 135/64 01/23/20 13:39 113 H 136/65 01/23/20 13:38 108 H 96 01/23/20 13:37 108 H 138/64 01/23/20 13:35 111 H 140/67 01/23/20 13:33 111 H 133/64 97 01/23/20 13:32 106 H 153/72 01/23/20 13:30 115 H 148/66 01/23/20 13:28 117 H 96 01/23/20 13:27 111 H 143/80 01/23/20 13:25 110 H 145/80 94 01/23/20 13:23 121 H 96 01/23/20 13:18 121 H 99 01/23/20 13:10 128 H 99 01/23/20 13:05 117 H 99 01/23/20 13:00 118 H 98 01/23/20 12:55 97 H 98 01/23/20 12:50 98 H 97 01/23/20 12:45 114 H 97 01/23/20 12:40 98 H 97 01/23/20 12:35 95 H 98 01/23/20 12:30 102 H 98 01/23/20 12:25 119 H 97 01/23/20 12:20 96 H 97 01/23/20 12:15 119 H 96 01/23/20 12:10 115 H 97 01/23/20 12:05 104 H 95 01/23/20 12:00 117 H 97 01/23/20 11:55 129 H 97 01/23/20 11:50 105 H 96 01/23/20 11:49 118 H 93 01/23/20 11:45 132 H 98 01/23/20 11:40 130 H 100 01/23/20 11:35 101 H 97 01/23/20 11:30 119 H 97 01/23/20 11:25 114 H 97 01/23/20 11:20 114 H 95 01/23/20 11:15 105 H 96 01/23/20 11:14 104 H 127/80 01/23/20 11:10 105 H 98 Intake and Output 01/23/20 01/24/20 01/24/20 22:59 06:59 14:59 Intake Total 987.201 1674 120 Output Total 700 450 Balance 2.084 1850 120 Intake: IV 638.118 1067 AMPICILLIN/NS 1 GM/50 ML 50 1 gm In 50 ml @ 100 mls/ hr IV Q4H RUBI Rx#: [id number] Lactated Ringers 1,000 ml 148.856 4421 @ 125 mls/hr IV DIRECT RUBI Rx#:[id number] Oral 120 Output: Urine 700 450 Indwelling Catheter 700 450 Other: Total, Intake Amount 120 Total, Output Amount 700 50 - Exam Breasts: Present: normal Lungs: Present: Clear to auscultation, Normal air movement Abdomen: Present: normal appearance, soft, normal bowel sounds Uterus: Present: normal, firm, fundal height at umbilicus Extremities: Present: normal Incision: Present: dry, dressed - Labs Labs: Abnormal lab results 01/23/20 Range/Units 10:50 RDW 17.2 H (13.2-15.2) %
[2020-01-24 14:17] LABS: Hematocrit 24.1 % (30.3-42.9); Hemoglobin 7.8 gm/dl (10.1-14.3)
[2020-01-25] MEDS: oxyCODONE /ACETAMINOPHEN 5-325MG TAB PO PRN ×4 (01:37→18:57)
[2020-01-25] MEDS: FERROUS SULFATE 325 MG TAB PO SCH ×2 (09:26→21:52)
[2020-01-25] MEDS ORDERED: IRON DEXTRAN COMPLEX 100 MG/2 ML INJ IM ONE (09:30)
--- NOTE | 2020-01-25 09:36 | Progress Note ---
Assessment and Plan - Patient Problems (1) S/P primary low transverse Current Visit: Yes Status: Acute Plan to address problem: POD 2 - unstable with uncontrolled pain & symptomatic anemia Continue current management Ambulation, abdominal binder encouraged prn Anticipate discharge in 24 hours (2) Anemia due to blood loss, acute Current Visit: Yes Status: Acute Plan to address problem: Symptomatic - pt is tachycardic Infed 100mg IM x1 ordered Ferrous sulfate 325 mg PO BID initiated (3) Uncontrolled pain Current Visit: Yes Status: Acute Plan to address problem: Continue current pain management Subjective - Subjective Date of service: 01/25/20 Principal diagnosis: POD #2; s/p Primary LTCS Interval history: see BEREAVEMENT PROGRAM COORDINATOR - H&P, Event Note, OB Delivery Procedure Note and PP/CLINICAL RESEARCH ADMINISTRATOR Progress Note Patient reports: appetite normal, voiding normally, pain well controlled, flatus, ambulating normally, no dizzy ambulation, no bowel movement : doing well, nursing well Objective - Vital Signs Latest vital signs: Vital Signs Temp Pulse Resp BP Pulse Ox 01/25/20 07:57 98.0 F 107 H 18 111/65 100 01/25/20 01:15 98.2 F 109 H 20 114/68 96 01/24/20 22:09 18 01/24/20 21:14 98.0 F 111 H 20 116/72 96 01/24/20 21:09 18 01/24/20 16:37 98.5 F 117 H 18 117/72 97 01/24/20 13:54 98.2 F 112 H 18 118/69 97 Intake and Output 01/24/20 01/25/20 01/25/20 23:59 07:59 15:59 Intake Total 480 320 120 Output Total 500 Balance -20 320 120 Intake: Oral 240 320 120 Intake, Free Water 240 Output: Urine 500 Void 500 Other: Total, Intake Amount 240 120 120 Total, Output Amount 500 # Voids Void 3 1 - Exam Cardiovascular: Present: Regular rate Lungs: Present: Clear to auscultation Abdomen: Present: normal appearance, soft Vulva: both: normal Uterus: Present: normal, firm, fundal height below umbilicus Extremities: Present: normal Incision: Present: normal, dry, intact Comments: scant lochia - Labs Labs: Abnormal lab results 01/24/20 Range/Units 13:43 Hgb 7.8 L D (10.1-14.3) gm/dl Hct 24.1 L D (30.3-42.9) %
[2020-01-26] MEDS: oxyCODONE /ACETAMINOPHEN 5-325MG TAB PO PRN ×3 (04:19→17:49)
[2020-01-26] MEDS: FERROUS SULFATE 325 MG TAB PO SCH ×2 (09:56→23:18)
--- NOTE | 2020-01-26 10:44 | Progress Note ---
Assessment and Plan A: /postop day 3 S/P primary LTCS. Anemia (on iron supplementation). P: Recheck CBC. Anticipate discharge later today or tomorrow AM. Continue ambulation. Subjective - Subjective Date of service: 01/26/20 Principal diagnosis: POD #3; s/p Primary LTCS Interval history: day 3 S/P primary LTCS. Voiding without difficulty, ambulating well, passing gas, and tolerating a regular diet. Patient reports: appetite normal, voiding normally, pain well controlled, flatus, ambulating normally, no dizzy ambulation, no nauseated [place]: doing well Objective - Vital Signs Latest vital signs: Vital Signs Temp Pulse Resp BP BP Pulse Ox 01/26/20 09:54 20 01/26/20 08:40 97.9 F 99 H 20 113/71 01/26/20 01:20 98.6 F 114 H 18 119/69 98 01/25/20 16:03 97.9 F 121 H 18 126/61 100 Intake and Output 01/25/20 01/26/20 01/26/20 23:59 07:59 15:59 Intake Total 480 360 320 Balance 480 360 320 Intake: Oral 480 320 Intake, Free Water 360 Other: Total, Intake Amount 240 320 # Voids Void 1 2 1 - Exam Cardiovascular: Present: Regular rate, Normal S1, Normal S2 Lungs: Present: Clear to auscultation Abdomen: Present: normal appearance, soft, normal bowel sounds. Absent: distention, tenderness, guarding, rigidity Uterus: Present: normal, firm, fundal height below umbilicus. Absent: bogginess, tenderness Extremities: Present: normal. Absent: tenderness, edema Incision: Present: normal, dry, intact
[2020-01-26 12:05] LABS: Basophils % (Auto) 0.3 % (0.0-1.8); Eosinophils # (Auto) 0.1 K/mm3 (0.0-0.4); Eosinophils % (Auto) 0.8 % (0.0-4.3); Hematocrit 21.2 % (30.3-42.9); Lymphocytes # (Auto) 1.9 K/mm3 (1.2-5.4); Lymphocytes % (Auto) 16.5 % (13.4-35.0); Mean Corpuscular HGB Conc 33 % (30-34); Mean Corpuscular Volume 93 fl (79-97); Monocytes # (Auto) 0.9 K/mm3 (0.0-0.8); Monocytes % (Auto) 8.4 % (0.0-7.3); Platelet Count 217 K/mm3 (140-440); Red Blood Count 2.28 M/mm3 (3.65-5.03); Red Cell Distribution Width 16.1 % (13.2-15.2)
[2020-01-26] MEDS: IBUPROFEN 800 MG TAB PO PRN (23:18)
[2020-01-27] MEDS: IBUPROFEN 800 MG TAB PO PRN (06:33)
[2020-01-27] MEDS: oxyCODONE /ACETAMINOPHEN 5-325MG TAB PO PRN (13:29)
[2020-01-27] MEDS: FERROUS SULFATE 325 MG TAB PO SCH (13:30)
--- NOTE | 2020-01-27 13:49 | Progress Note ---
Assessment and Plan A: /postop day 4 S/P primary LTCS. Anemia. P: Discharge patient home today. Discussed with patient /postop discharge instructions and warning signs, activity restrictions, and care of incision. Advised patient to take her iron supplements at home 3 times per day. Advised patient to continue taking her vitamin daily. Advised patient to avoid intercourse, lifting and housework, stair climbing, and driving. Advised pt. to follow up at [facility] in 7-10 days; advised pt. to call for appt. Patient voiced understanding of all instructions. Called Dr. Syed re: pt.'s CBC results and Dr. Syed states OK to discharge pt. home today. Subjective - Subjective Date of service: 01/27/20 Principal diagnosis: POD #4; s/p Primary LTCS Interval history: day 4 S/P primary LTCS. Voiding without difficulty, ambulating well, passing gas, and tolerating a regular diet. Patient desires discharge today. Patient denies headache, dizziness, chest pain, cough, shortness of breath, leg pain, heavy bleeding, or any other problems. Patient reports: appetite normal, voiding normally, pain well controlled, flatus, ambulating normally, no dizzy ambulation, no nauseated [place]: doing well Objective - Vital Signs Latest vital signs: Vital Signs Temp Pulse Resp BP BP Pulse Ox 01/27/20 13:29 20 01/27/20 08:49 97.9 F 95 H 16 127/81 96 01/27/20 00:41 98.2 F 100 H 18 119/74 97 01/26/20 17:49 20 01/26/20 16:25 98 F 94 H 20 110/65 Intake and Output 01/26/20 01/27/20 01/27/20 23:59 07:59 15:59 Intake Total 118 017 3755 Balance 305 684 9425 Intake: Oral 093 839 5123 Intake, Free Water 120 Other: Total, Intake Amount 240 360 800 Voiding Method Toilet # Voids 1 Void 1 1 1 - Exam Cardiovascular: Present: Regular rate, Normal S1, Normal S2 Lungs: Present: Clear to auscultation Abdomen: Present: normal appearance, soft, normal bowel sounds. Absent: distention, tenderness, guarding, rigidity Uterus: Present: normal, firm, fundal height below umbilicus. Absent: bogginess, tenderness Extremities: Present: normal. Absent: tenderness, edema Incision: Present: normal, dry, intact
--- NOTE | 2020-01-27 13:53 | Discharge Summary ---
Providers - Providers Date of Admission: 01/23/20 10:51 Date of discharge: 01/27/20 Attending physician: BENNY MERA Primary care physician: BENNY MERA Hospitalization Reason for admission: active labor Delivery: Procedure: primary low transverse Incision: normal, dry, intact Other procedures: none complications: none Discharge diagnosis: IUP at term delivered baby: male Pertinent studies: Labs Hospital course: Stable hospital course. Condition at discharge: Good Disposition: DC-01 TO HOME OR SELFCARE - Discharge Diagnoses (1) Term delivered Status: Acute (2) Anemia Status: Acute Plan - Discharge Medications Prescriptions: Ibuprofen [Motrin 800 MG tab] 800 mg PO Q6HR PRN #30 tablet PRN Reason: Pain , Severe (7-10) oxyCODONE /ACETAMINOPHEN [Percocet 5/325] 1 tab PO Q4HR #30 tab - Provider Discharge Summary Activity: routine, no sex for 6 weeks, no heavy lifting 4 weeks, no strenuous exercise Diet: routine Instructions: routine Additional instructions: Continue to take your vitamins at iron. Advised pt. to take her iron supplements 3 times per day at home. Call your doctor immediately for: * Fever > 100.5 * Heavy vaginal bleeding ( >1 pad per hour) * Severe persistent headache * Shortness of breath * Reddened, hot, painful area to leg or breast * Drainage or odor from incision. * Keep incision clean and dry at all times and follow doctor's instructions regarding bathing/showering - Follow up plan Follow up: BENNY MERA MD [Primary Care Provider] - 10 Days
[2020-01-27 15:29] VITALS: BP 136/80
== END 2020-01-27 17:06 | disposition home or self-care (01) | DRG 765 ==
LOC: TRG 08:08 → APU 08:09 → UNDOADMIN 10:51 → TRG 10:51 → LD 10:51 → OB 01-24 02:55
PROVIDERS: ADMIT Obstetrics & Gynecology; ATTEND Obstetrics & Gynecology
PROC: 10D00Z1 Extraction of Products of Conception, Low, Open Approach (ICD-10-PCS; principal; 2020-01-23)
PROC: 3E0234Z Introduction of Serum, Toxoid and Vaccine into Muscle, Percutaneous Approach (ICD-10-PCS; 2020-01-24)
DX: O76 Abnormality in fetal heart rate and rhythm complicating labor and delivery (principal); D62 Acute posthemorrhagic anemia; O62.0 Primary inadequate contractions; O99.824 Streptococcus B carrier state complicating childbirth; Z3A.39 39 weeks gestation of pregnancy; Z37.0 Single live birth; Z23 Encounter for immunization; O90.81 Anemia of the puerperium; O77.0 Labor and delivery complicated by meconium in amniotic fluid; O69.1XX0 Labor and delivery complicated by cord around neck, with compression, not applicable or unspecified
CPT/HCPCS: 36415; 85014; 85018; 85025; 85027; 86850; 86900; 86901; 90715; G0378; C1765; J0290; J0595; J0690; J1750; J1885; J2210; J2405; J2590; J2765; J3490; J7030; J7120